=== PATIENT | male | born 1985 | race Caucasian/White ===

== ENCOUNTER 2024-11-06 03:48 | Emergency (ER) | payer BC, SELFPAY ==
[2024-11-06 03:53] VITALS: BP 132/77
[2024-11-06] MEDS: ZOFRAN ODT (ORALLY DISINTEGRATING) 4 MG PO (04:27)
[2024-11-06 04:38] LABS: % Basophils 0.8 % (0-2); % Eosinophils 0.1 % (0-6); % Immature Granulocytes 0.3 % (0-0.5); % Lymphocytes 7.2 % (20.5-51.1); % Monocytes 3.7 % (1.7-9.3); % Neutrophils 87.9 % (42.2-75.2); Absolute Basophils 0.1 10^3/uL (0-0.2); Absolute Monocytes 0.5 10^3/uL (0.1-0.6); Hematocrit 43.5 % (39.0-52.0); Mean Corp Hgb Conc. 36.8 g/dL (33.0-37.0); Mean Corpuscular Hgb 30.3 pg (27.0-31.0); Mean Corpuscular Volume 82.4 fL (80.0-94.0); Mean Platelet Volume 9.6 fL (7.4-10.4); Nucleated Red Blood Cells % 0 % (-); Platelet Count 249 10^3/uL (130-400); Red Blood Cell Count 5.28 10^6/uL (4.70-6.10); Red Cell Dist. Width 11.4 % (11.5-14.5); White Blood Cell Count 13.7 10^3/uL (4.8-10.8)
[2024-11-06 04:57] LABS: ALT (SGPT) 27 U/L (0-50); AST (SGOT) 30 U/L (17-59); Albumin 5.1 g/dl (3.5-5.0); Alkaline Phosphatase 127 U/L (38-126); Blood Urea Nitrogen 18 mg/dl (9-20); Calcium 9.9 mg/dl (8.4-10.2); Carbon Dioxide 15 mmol/L (22-30); Chloride 105 mmol/L (98-107); Glucose 171 mg/dl (70-99); Lipase 118 U/L (23-300); Potassium 3.7 mmol/L (3.5-5.1); Sodium 138 mmol/L (135-145); Total Bilirubin 1.2 mg/dl (0.2-1.3); Total Protein 7.4 g/dl (6.3-8.2); eGFR > 60.00
[2024-11-06 07:32] VITALS: BP 136/74
[2024-11-06 08:00] VITALS: BP 119/77
--- NOTE | 2024-11-06 08:06 | ED.GENMED ---
History of Present Illness
General
Chief Complaint: Abdominal Symptoms
Source: patient
Exam Limitations: none
Time Seen by Provider: 11/06/24 07:18
Nursing documentation reviewed up to this point in time: agreed with
History of Present Illness
History of Present Illness:
3-year-old male presents to the ER for evaluation. Patient started at 3 AM with abdominal cramping and 1 episode of diarrhea however has vomited at least 6 times since. He feels body aches all over and has the chills. Because of his symptoms he
feels difficulty taking a deep breath. He also is having hiccups. He denies any actual abdominal pain. Prior to my exam patient was given oral Zofran and reports this did not help.
Past History
Past History
ED Past Medical History: None
Social History
Tobacco: Former smoker
Alcohol: Occasional
Drug: None
Personal: Single
Living: with roommate
Review of Systems
Review of Systems
Allergies reviewed?: Yes
All Other Systems: ROS reviewed and negative except as documented in HPI and ROS
Constitutional: Reports fatigue and chills
Respiratory: Reports other (' I am heavy breathing' )
Cardiac: Reports no symptoms
ABD/GI: Reports nausea, vomiting and diarrhea
: Reports no symptoms
Musculoskeletal: Reports other (body aches)
Skin: Reports no symptoms
Neurological: Reports no symptoms
Psychiatric: Reports no symptoms
Phy Exam
General Physical Exam
General Presentation: no apparent distress
General age: appears stated age
General Skin: warm and dry
General Habitus: normal
General Mental: alert
General Hydration: appears well hydrated
Cardiovascular Exam
Cardiovascular Exam: regular rate/rhythm, no murmur and normal peripheral pulses
Pulmonary Exam
Pulmonary Exam: lungs clear and no respiratory distress
Gastrointestinal Exam
Gastrointestinal Exam: non tender and soft
Neurological Exam
Neurological Exam: alert and oriented x3
Musculoskeletal Exam
Musculoskeletal Exam: full ROM
Skin Exam
Skin Exam: normal color and warm/dry
Psychiatric Exam
Psychiatric Exam: normal mood/affect
Course
Orders/Labs/Results
Orders:
Orders
11/06/24 04:07
Electrocardiogram (*1) Urgent
Reason for Study: Vertigo / Dizzy
EKG- Treatment ONCE
11/06/24 04:08
Ondansetron Orally Disint [Zofran Odt (Orally Disintegrating)] 4 mg .ROUTE .STK-MED ONE
11/06/24 04:25
Complete Blood Count/With Diff Urgent
Comprehensive Metabolic Panel Urgent
Lipase Urgent
11/06/24 04:27
Ondansetron Orally Disint [Zofran Odt (Orally Disintegrating)] 4 mg PO NOW STA
11/06/24 08:17
Diphenhydramine [Benadryl] 25 mg IV NOW STA
Ketorolac [Toradol] 15 mg IV NOW STA
Metoclopramide [Reglan] 10 mg IV NOW STA
Abnormal Lab Results
11/06/24
04:25
WBC 13.7 H 10^3/uL
(4.8-10.8)
RDW 11.4 L %
(11.5-14.5)
Absolute Neuts (auto) 12.0 H 10^3/uL
(1.4-6.5)
Absolute Lymphs (auto) 1.0 L 10^3/uL
(1.2-3.4)
Neutrophils % 87.9 H %
(42.2-75.2)
Lymphocytes % 7.2 L %
(20.5-51.1)
Carbon Dioxide 15 L mmol/L
(22-30)
Glucose 171 H mg/dl
(70-99)
Alkaline Phosphatase 127 H U/L
(38-126)
Albumin 5.1 H g/dl
(3.5-5.0)
11/06/24 04:25
11/06/24 04:25
Vital Signs
Initial and Last Documented VS:
Initial Vital Signs
Temp Pulse Resp BP Pulse Ox
98.4 F 96 20 132/77 100
11/06/24 03:53 11/06/24 03:53 11/06/24 03:53 11/06/24 03:53 11/06/24 03:53
Last Documented Vital Signs
Temp Pulse Resp BP Pulse Ox
98.4 F 96 20 119/77 99
11/06/24 03:53 11/06/24 03:53 11/06/24 03:53 11/06/24 08:00 11/06/24 08:00
MDM/Problems Addressed
Differential Diagnosis Includes:
Not limited to viral syndrome likely norovirus, dehydration
MDM/Problems Addressed:
Symptoms are consistent likely with viral syndrome. Patient has not vomited here no diarrhea. Abdomen soft nontender patient was initially given Zofran ODT however on my exam still felt nauseous and was given Reglan Benadryl(had hiccups as well)
and was given Toradol fluids.
Patient is afebrile here labs reviewed white count elevated to 13.7 normal renal function and electrolytes
Patient feeling better drinking water and questing to go home. Will DC with Zofran at home
Chronic conditions affecting care:
Patient does get frequent hiccups
*Critical Care Note
Total Time (30-74mins, 75-104mins- exclusive of procedures): Not Applicable
ED Attending Note
-
Portions of this chart may have been created with voice recognition software.� Occasional wrong word or��sound alike� substitutions may have occurred due to the inherent limitations of voice recognition software.
Discharge Plan
Departure
Patient Disposition: Home (Routine Discharge)
Date of Disposition: 11/06/24
Time of Disposition: 09:44
Patient with high blood pressure during this ER visit?: No
Condition: Fair
Covid-19: Not Applicable
Discharge Problem:
Acute viral syndrome
Instructions: Diarrhea in teens and adults, Nausea and Vomiting, Adult (DC)
Prescriptions:
New
ondansetron 4 mg tablet,disintegrating
4 mg PO Q8H PRN (Reason: nausea and vomiting) Qty: 10 0RF
Referrals:
NONE,* [Family Provider] -
Activity Restrictions/Additional Instructions:
Clear fluids for the next 24 hours follow bland solid foods. Prescription for Zofran was sent to pharmacy take as directed. Follow-up with family doctor next of days for reevaluation return if any worsening of symptoms.
Interventions
Interventions:
*Risk Screen - Suicide Last Done: 11/06/24 08:13
*General Assessment Last Done: 11/06/24 03:53
*Neglect/Abuse Screening Last Done: 11/06/24 03:53
ED- Fall Risk Assessment Last Done: 11/06/24 07:34
*ED COVID-19 Vaccine History Last Done: 11/06/24 08:13
IE-Jggywf-Qhiahqcmsy Assessment Last Done: 11/06/24 07:32
Discharge Date and Time
Print Language: TURKMEN
[2024-11-06] MEDS: REGLAN 10 MG IV (08:20)
[2024-11-06] MEDS: TORADOL 15 MG IV (08:20)
[2024-11-06] MEDS: BENADRYL 25 MG IV (08:20)
[2024-11-06 09:57] VITALS: BP 116/74
== END 2024-11-06 09:58 | disposition home or self-care (01) ==
LOC: EMR 03:48
PROVIDERS: Emergency Medicine; EMERGENCY PHYSICIAN Emergency Medicine
DX: B34.9 Viral infection, unspecified (principal); Z87.891 Personal history of nicotine dependence
CPT/HCPCS: 99284; 96374; 96375 ×2; 80053; 83690; 85025; 93005

== ENCOUNTER 2024-12-30 19:56 | Emergency (ER) | payer BC, SELFPAY ==
[2024-12-30 19:58] VITALS: BP 151/86
--- NOTE | 2024-12-30 20:21 | ED.GENMED ---
History of Present Illness
General
Chief Complaint: Musculo-Skeletal Complaint
Source: patient
Exam Limitations: none
Time Seen by Provider: 12/30/24 20:14
History of Present Illness
History of Present Illness:
See MDM
Past History
Past History
ED Past Medical History: None
ED Past Surgical History: None
Social History
Tobacco: Former smoker
Alcohol: Occasional
Drug: None
Personal: Single
Living: with roommate
Phy Exam
Physical Exam
Physical Exam:
See MDM
Course
Orders/Labs/Results
Orders:
Orders
12/30/24 19:59
Finger(s)/Thumb 2 View Rt [CR Finger(s)/thumb Min 2 Vw Rt] Urgent
Comment:
Reason For Exam: injury
Indicate Which Finger:: Middle Finger
12/30/24 20:21
Amoxicillin 875 mg/Clav 125 mg [Augmentin 875 mg/125 mg] 1 tablet PO NOW STA
Vital Signs
Initial and Last Documented VS:
Initial Vital Signs
Temp Pulse Resp BP Pulse Ox
98.5 F 107 18 151/86 99
12/30/24 19:58 12/30/24 19:58 12/30/24 19:58 12/30/24 19:58 12/30/24 19:58
Last Documented Vital Signs
Temp Pulse Resp BP Pulse Ox
98.5 F 107 18 151/86 99
12/30/24 19:58 12/30/24 19:58 12/30/24 19:58 12/30/24 19:58 12/30/24 19:58
Procedures
Joint/Fracture Reduction
Right middle finger PIP joint:
Indication for procedure:: PIP dislocation
Procedure completed by: Sheldon Colon DO
Consent form signed: No
Joint reduced: without anesthesia
Anesthesia/sedation: 1% Lidocaine
Injury was: closed
Further treatement: needs re-check only
Post reduction exam: stable
Capillary Refill: normal
Normal distal neurovascular exam?: Yes
Digital Block
Location of injection for digital block: head of metacarpals (Of Right 3rd finger)
Indiction for Digital Block: orthopedic procedure
Was sensory exam normal prior to exam?: intack pin prick
Type of anesthesia: 1% Lidocaine w/o EPI
Complications: none- good anesthesia
MDM/Problems Addressed
Differential Diagnosis Includes:
HPI and MDM Narrative:
39-year-old male presenting with right middle finger injury. Patient tripped on the steps and he fell with an outstretched hand. He injured his right middle finger. He has a small cut to the finger. He denies numbness or tingling but he is
having trouble bending it. Per triage, there was initial concern for possible open fracture. X-ray shows dislocation at the PIP joint rather than a fracture. They cut over the area is extremely superficial and does not pass through the dermis.
It is not open. I did do a digital block. Patient already given a one-time dose of Augmentin
Physical exam
General: Well appearing and non-toxic
HEENT: protecting airway
Neck: appears supple
CV: No evidence of cyanosis
Resp: No accessory muscle use
Abd: Non-distended
Extremities: Deformity and swelling to right middle finger along PIP. Sensation grossly intact. Cap refill less than 2 seconds. Decreased range of motion secondary to pain and dislocation
Neuro: alert
Psych: Normal affect
Skin: Intact
Problems Addressed including Acute and Chronic Conditions affecting care:
1. Right middle finger dislocation at PIP
Acuity: acute
Prognosis: unstable
Details: After digital block, the finger was reduced easily. Patient placed in finger splint discussed follow-up with hand
Updates
Patient tolerated reduction well. After reduction, patient has full range of motion of his finger. The finger is expectedly numb and sensation is decreased. However, sensation was intact prior to digital block. Will place in a finger splint
discussed follow-up with hand
8:57 PM radiologist indicated that there could be a small fracture. The patient was called and updated on the overread. Discussed follow-up with hand and continuing the plan that we already discussed
Differential Diagnosis (but not limited to): Finger fracture, finger dislocation
Testing considered: Hand x-ray but pain is localized to right middle finger
Drug therapy (if applicable): OTC meds, please see d/c instruction regarding Rx drugs
Amount and/or Complexity of Data Reviewed
Clinical info obtained from: Patient
External data reviewed: N/A
Labs I independently reviewed (but not limited to): N/A
Radiology: X-ray independently reviewed: Dislocation of right middle finger PIP joint
Pulse Ox: not hypoxic
EKG independently reviewed: N/A
Life Enrichment Director: N/A
Critical Care: N/A
Risk of Complication:
Social Determinants of health: Good social support
Discussed with other providers: N/A
Escalation of Care includes Admit/Obs: After being observed in the Emergency Department, pt stable for discharge.
Occasional wrong word or 'sound a like' substitutions may have occurred due to the inherent limitations of voice recognition software. Read the chart carefully and recognize, using context, where substitutions have occurred.
*Critical Care Note
Total Time (30-74mins, 75-104mins- exclusive of procedures): Not Applicable
ED Attending Note
-
Portions of this chart may have been created with voice recognition software.� Occasional wrong word or��sound alike� substitutions may have occurred due to the inherent limitations of voice recognition software.
Discharge Plan
Departure
Patient Disposition: Home (Routine Discharge)
Date of Disposition: 12/30/24
Time of Disposition: 20:29
Patient with high blood pressure during this ER visit?: Yes
Discharge Problem:
Dislocation of right middle finger
Instructions: Finger Dislocation ED, BLOOD PRESSURE
Prescriptions:
No Action
ondansetron 4 mg tablet,disintegrating
4 mg PO Q8H PRN (Reason: nausea and vomiting) Qty: 10 0RF
Referrals:
Karson Pollack MD [Active] -
Activity Restrictions/Additional Instructions:
Please return for any worsening symptoms.
You may return at any time if you have further concerns.
Please follow up with hand orthopedist at the first available appointment, preferably this week.
Thank you for choosing [facility].
Interventions
Interventions:
*Risk Screen - Suicide Last Done: 12/30/24 19:58
*General Assessment Last Done: 12/30/24 19:58
*Neglect/Abuse Screening Last Done: 12/30/24 19:58
ED- Fall Risk Assessment Last Done: 12/30/24 20:37
*ED COVID-19 Vaccine History Last Done: 12/30/24 19:58
*Nursing Disposition Last Done: 12/30/24 20:39
ED-Musculoskeletal Assessment Last Done: 12/30/24 20:21
Discharge Date and Time
Discharge Date/Time: 12/30/24 20:40
Print Language: EGYPTIAN
[2024-12-30] MEDS: AUGMENTIN 875 MG/125 MG 1 TABLET PO (20:24)
== END 2024-12-30 20:40 | disposition home or self-care (01) ==
LOC: EMR 19:56
PROVIDERS: EMERGENCY PHYSICIAN Student in an Organized Health Care Education/Training Program
DX: S63.252A Unspecified dislocation of right middle finger, initial encounter (principal); X58.XXXA Exposure to other specified factors, initial encounter; Z87.891 Personal history of nicotine dependence
CPT/HCPCS: 99283; 26770; 73140